=== PATIENT | female | born 1985 | race Caucasian/White ===

== ENCOUNTER 2018-03-28 13:04 | Emergency (ER) | payer MEDICAID ==
[2018-03-28] MEDS ORDERED: IPRATROPIUM/ALBUTEROL 3 ML NEB INH STA (13:12)
[2018-03-28] MEDS ORDERED: SODIUM CHLORIDE 0.9% 1,000 ML IV ONE (13:15)
[2018-03-28] MEDS ORDERED: DEXAMETHASONE 10 MG/ML VIAL IVP STA (13:15)
[2018-03-28] MEDS ORDERED: KETOROLAC 30 MG/ML VIAL IVP STA (13:15)
[2018-03-28] MEDS ORDERED: KETOROLAC 60 MG/2 ML VIAL IM STA (13:36)
[2018-03-28] MEDS ORDERED: DEXAMETHASONE 10 MG/ML VIAL PO STA (13:36)
[2018-03-28] MEDS ORDERED: ALBUTEROL NEB 2.5 MG/3 ML INH STA ×2 (13:44→15:08)
--- NOTE | 2018-03-28 13:50 | ED Physician Documentation ---
PD HPI DYSPNEA - Stated complaint Stated Complaint: DIFFICULTY BREATHING - Chief complaint Chief Complaint: Resp - History obtained from History obtained from: Patient - History of Present Illness Timing - onset: How many months ago (1) Timing - onset during: Rest Timing - duration: Months (1) Timing - details: Gradual onset Pain level max: 3 Pain level now: 3 Inciting event(s): URI Improved by: Rest Worsened by: Exertion Associated symptoms: Cough, Wheezing, Chest pain / discomfort (tightness). No: Fever, Hemoptysis Similar symptoms before: Diagnosis (asthma) - Additional information Additional information: used to use inhalers, has not for several years. Does smoke and use IV drugs. no fevers. 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 HEENT: Tonsil/Adenoidectomy - Present Medications Home Medications: Ambulatory Orders Medication Instructions Recorded Confirmed Albuterol Sulf [Ventolin Hfa 1 - 2 puffs INH Q4HR PRN #1 inhaler 03/28/18 Inhaler] predniSONE [Deltasone] 10 mg PO [id number] #42 tab 03/28/18 - Allergies Allergies/Adverse Reactions: Allergies Allergy/AdvReac Type Severity Reaction Status Date / Time latex Allergy Rash Verified 03/28/18 13:14 - Social History Does the pt smoke?: Yes Smoking Status: Current every day smoker Does the pt drink ETOH?: No Does the pt have substance abuse?: No - Immunizations Immunizations are current?: Yes PD ED PE NORMAL - Vitals Vital signs reviewed: Yes - General General: Alert and oriented X 3, No acute distress - HEENT HEENT: Moist mucous membranes - Neck Neck: Supple, no meningeal sign - Cardiac Cardiac: RRR - Respiratory Respiratory: Other (Mild respiratory distress, wheezing bilaterally. Diminished breath sounds at the bases) - Abdomen Abdomen: Soft, Non tender, Non distended - Derm Derm: Warm and dry - Extremities Extremities: No edema, No calf tenderness / cord - Neuro Neuro: Alert and oriented X 3 Results - Vitals Vitals: Oxygen O2 Source Room air Oxygen Flow Rate 3 - Rads (name of study) cxr Radiology: Prelim report reviewed, EMP read contemporaneously, See rad report (no acute disease) PD MEDICAL DECISION MAKING - ED course Complexity details: reviewed results, re-evaluated patient, considered differential, d/w patient ED course: 32 year old female with significant asthma exacerbation. Feels much better after steroids and nebulizer treatment. Will place on steroids and inhaler for home. No evidence of pneumonia. No hypoxia with ambulation in the ED she requests to go home at this time. Patient counseled regarding signs and symptoms for which I believe and urgent re-evaluation would be necessary. Patient with good understanding of and agreement to plan and is comfortable going home at this time This document was made in part using voice recognition software. While efforts are made to proofread this document, sound alike and grammatical errors may occur. Departure - Departure Disposition: 01 Home, Self Care Clinical Impression: Asthma exacerbation Qualifiers: Asthma severity: unspecified severity Asthma persistence: unspecified Qualified Code(s): J45.901 - Unspecified asthma with (acute) exacerbation Condition: Good Instructions: ED Reactive Airway Disease Follow-Up: your,doctor in 1 week [Other] Prescriptions: Albuterol Sulf [Ventolin Hfa Inhaler] 1 - 2 puffs INH Q4HR PRN #1 inhaler PRN Reason: Shortness Of Air/Wheezing predniSONE [Deltasone] 10 mg PO [id number] #42 tab Comments: This should improve with your inhaler and steroids. Return if you worsen Discharge Date/Time: 03/28/18 16:26
--- NOTE | 2018-03-28 14:28 | XRAY Report ---
Reason: dyspnea Procedure Date: 03/28/2018 Accession Number: [id number] / [id number] Procedure: XR - Chest 1 View X-Ray CPT Code: 77080 FULL RESULT: EXAM: CHEST RADIOGRAPHY EXAM DATE: 03/28/2018 02:10 PM. CLINICAL HISTORY: Shortness of breath. COMPARISON: [facility] W/PA CHEST LT 05/29/2015 2:49 PM. TECHNIQUE: 1 view. FINDINGS: Lungs/Pleura: No focal opacities evident. No pleural effusion. No pneumothorax. Mediastinum: Within exam limitations, the cardiomediastinal contour is normal. Other: None. IMPRESSION: No acute cardiopulmonary abnormality demonstrated. RADIA
[2018-03-28 16:22] VITALS: BP 117/77
== END 2018-03-28 16:26 | disposition home or self-care (01) ==
LOC: ED 13:04
DX: J45.901 Unspecified asthma with (acute) exacerbation (principal); F17.200 Nicotine dependence, unspecified, uncomplicated
CPT/HCPCS: 71045; 94640; 99283

== ENCOUNTER 2018-09-25 19:42 | Emergency (ER) | payer MEDICAID ==
[2018-09-25 19:57] VITALS: BP 130/71
[2018-09-25 20:03] LABS: BILIRUBIN,URINE NEGATIVE (NEGATIVE); GLUCOSE, URINE (UA) NEGATIVE (NEGATIVE); KETONES,URINE (UA) 15 mg/dL (NEGATIVE); LEUKOCYTE ESTERASE, URINE MODERATE (NEGATIVE); NITRITE,URINE NEGATIVE (NEGATIVE); OCCULT BLOOD,URINE LARGE (NEGATIVE); PH,URINE 8.5 PH (5.0-7.5); PROTEIN,URINE 30 mg/dL (NEGATIVE); UROBILINOGEN,URINE 0.2 (NORMAL) E.U./dL (NORMAL)
[2018-09-25 20:10] LABS: CLARITY,URINE CLOUDY (CLEAR)
[2018-09-25 20:11] LABS: HCG UR QUAL NEGATIVE
[2018-09-25 20:13] LABS: RBC,URINE TNTC /HPF (0-5)
[2018-09-25 20:14] LABS: BACTERIA,URINE Many /HPF (None Seen); SQUAMOUS EPITHELIAL CELL,UR RARE Squamous (<= Few)
[2018-09-25] MEDS ORDERED: LIDOCAINE 1% 2 ML VIAL MC ONE (20:33)
[2018-09-25] MEDS ORDERED: cefTRIAXone 1 GM VIAL IM STA (20:33)
[2018-09-25] MEDS ORDERED: KETOROLAC 60 MG/2 ML VIAL IM STA (20:33)
--- NOTE | 2018-09-25 20:35 | ED Physician Documentation ---
PD HPI FEMALE - Stated complaint Stated Complaint: FEM - Chief complaint Chief Complaint: UTI - History obtained from History obtained from: Patient, Friend - History of Present Illness Timing - onset: How many days ago (3) Timing - duration: Days (3) Timing - details: Gradual onset, Still present Associated symptoms: Fever, Back pain, Dysuria, Urinary frequency Contributing factors: No: Similar symptoms before: Diagnosis (pyelo) Recently seen: Not recently seen - Additional information Additional information: Previously well 33-year-old female has developed urinary urgency frequency and dysuria 3 days ago she is now progressed to having vomiting a subjective fever and flank pain. She has had Pyelo previously. She is vomited twice. Review of Systems Constitutional: reports: Fever, Myalgias, Fatigue Eyes: denies: Decreased vision Ears: denies: Ear pain Nose: denies: Rhinorrhea / runny nose, Congestion Throat: denies: Sore throat Cardiac: denies: Chest pain / pressure Respiratory: denies: Dyspnea, Cough GI: reports: Abdominal Pain, Nausea, Vomiting : reports: Dysuria, Frequency Skin: denies: Rash Musculoskeletal: reports: Back pain PD PAST MEDICAL HISTORY - Past Medical History Past Medical History: No Cardiovascular: None Respiratory: None Neuro: None Endocrine/Autoimmune: None GI: None FINANCIAL DIRECTOR: None : None HEENT: None Psych: None Musculoskeletal: None Derm: None - Past Surgical History Past Surgical History: Yes General: 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, Tubal ligation HEENT: Tonsil/Adenoidectomy - Present Medications Home Medications: Ambulatory Orders Medication Instructions Recorded Confirmed Albuterol Sulf [Ventolin Hfa 1 - 2 puffs INH Q4HR PRN #1 inhaler 03/28/18 Inhaler] predniSONE [Deltasone] 10 mg PO [id number] #42 tab 03/28/18 Ondansetron Odt [Zofran] 4 mg TL Q6H PRN #10 tablet 09/25/18 Oxycodone HCl/Acetaminophen 1 - 2 each PO Q6H PRN #14 tablet 09/25/18 [Percocet 5-325 mg Tablet] Sulfamethoxazole/Trimethoprim 1 each PO BID #14 tablet 09/25/18 [Sulfamethoxazole-Tmp Ds Tablet] - Allergies Allergies/Adverse Reactions: Allergies Allergy/AdvReac Type Severity Reaction Status Date / Time latex Allergy Rash Verified 09/25/18 19:57 - Social History Does the pt smoke?: Yes Smoking Status: Current every day smoker Does the pt drink ETOH?: No Does the pt have substance abuse?: No - Immunizations Immunizations are current?: Yes - POLST Patient has POLST: No PD ED PE NORMAL - Vitals Vital signs reviewed: Yes (tachy ) - General General: Alert and oriented X 3, Well developed/nourished, Other (appears to be in pain with 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 ) - HEENT HEENT: Atraumatic, PERRL - Neck Neck: Supple, no meningeal sign - Cardiac Cardiac: No murmur, Other (tachy ) - Respiratory Respiratory: No respiratory distress - Abdomen Abdomen: Soft, Non tender - Back Back: No spinal TTP, Other (CVA tenderness bilaterally worse on the right ) - Derm Derm: Normal color, Warm and dry, No rash - Extremities Extremities: No deformity, No edema, No calf tenderness / cord - Neuro Neuro: Alert and oriented X 3, shoe shiner 2-12 intact, No motor deficit, No sensory deficit, Normal speech Eye Opening: Spontaneous Motor: Obeys Commands Verbal: Oriented GCS Score: 15 - Psych Psych: Normal mood, Normal affect Results - Vitals Vitals: Vital Signs - 24 hr 09/25/18 19:54 Temperature 36.8 C Heart Rate 105 H Respiratory 16 Rate Blood Pressure 130/71 O2 Saturation 100 Oxygen O2 Source Room air - Labs Labs: Laboratory Tests 09/25/18 19:50 Urine Color YELLOW Urine Clarity CLOUDY Urine pH 8.5 H Ur Specific [place] 1.015 Urine Protein 30 H Urine Glucose (UA) NEGATIVE Urine Ketones 15 H Urine Occult Blood LARGE H Urine Nitrite NEGATIVE Urine Bilirubin NEGATIVE Urine Urobilinogen 0.2 (NORMAL) Ur Leukocyte Esterase MODERATE H Urine RBC TNTC H Urine WBC >25 H Ur Squamous Epith Cells RARE Squamous Urine Bacteria Many H Ur Microscopic Review INDICATED Urine Culture Comments INDICATED Urine HCG, Qual NEGATIVE PD MEDICAL DECISION MAKING - ED course Complexity details: reviewed results, re-evaluated patient, considered differential, d/w patient, d/w family ED course: 33-year-old female with urinary tract infections for 3 days has developed flank pain and fever vomiting she is not she appears to have pyelonephritis and she is administered Rocephin 1 g IM Toradol 60 mg IM and we will send her home with some pain medication and a prescription for some antibiotic and antinausea medicine. Departure - Departure Disposition: Home, Self Care Clinical Impression: Pyelonephritis Condition: Stable Instructions: ED Kidney Infec Female Follow-Up: [facility] [Provider Group] Prescriptions: Ondansetron Odt [Zofran] 4 mg TL Q6H PRN #10 tablet PRN Reason: Nausea / Vomiting Oxycodone HCl/Acetaminophen [Percocet 5-325 mg Tablet] 1 - 2 each PO Q6H PRN #14 tablet PRN Reason: pain Sulfamethoxazole/Trimethoprim [Sulfamethoxazole-Tmp Ds Tablet] 1 each PO BID #14 tablet Forms: Activity restrictions
== END 2018-09-25 20:55 | disposition home or self-care (01) ==
LOC: ED 19:42
DX: N12 Tubulo-interstitial nephritis, not specified as acute or chronic (principal); F17.200 Nicotine dependence, unspecified, uncomplicated
CPT/HCPCS: 81001; 81003; 81025; 87077; 87086; 87181; 96372; 99283

== ENCOUNTER 2018-10-23 19:14 | Emergency (ER) | payer MEDICAID ==
[2018-10-23 19:19] VITALS: BP 116/100
[2018-10-23] MEDS ORDERED: IPRATROPIUM/ALBUTEROL 3 ML NEB INH STA (19:27)
[2018-10-23] MEDS ORDERED: predniSONE 20 MG TABLET PO STA (19:27)
--- NOTE | 2018-10-23 19:29 | ED Physician Documentation ---
PD HPI URI - Stated complaint Stated Complaint: COUGH/SOA - Chief complaint Chief Complaint: Resp - History obtained from History obtained from: Patient - History of Present Illness Timing - onset: How many days ago (5) Timing duration: Days (5) Timing details: Gradual onset Pain level max: 0 Pain level now: 0 Associated symptoms: Dry cough, Dyspnea (wheezing, out of her inhaler). No: Fever, Chills, Ear pain, Nasal congestion, Rhinorrhea Contributing factors: COPD / asthma Improves by: Rest Worsened by: Activity, Breathing Recently seen: Not recently seen Review of Systems Constitutional: denies: Fever, Chills Throat: denies: Sore throat GI: denies: Vomiting, Diarrhea : denies: Now EGA Skin: denies: Rash Musculoskeletal: denies: Neck pain, Back pain PD PAST MEDICAL HISTORY - Past Medical History Cardiovascular: None Respiratory: Asthma Neuro: None Endocrine/Autoimmune: None GI: None PSYCHOLOGIST SOCIAL: None : None HEENT: None Psych: None Musculoskeletal: None Derm: None - Past Surgical History Past Surgical History: Yes General: 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, Tubal ligation HEENT: Tonsil/Adenoidectomy - Present Medications Home Medications: Ambulatory Orders Medication Instructions Recorded Confirmed Albuterol Sulf [Ventolin Hfa 1 - 2 puffs INH Q4HR PRN #1 inhaler 03/28/18 Inhaler] predniSONE [Deltasone] 10 mg PO [id number] #42 tab 03/28/18 Ondansetron Odt [Zofran] 4 mg TL Q6H PRN #10 tablet 09/25/18 Oxycodone HCl/Acetaminophen 1 - 2 each PO Q6H PRN #14 tablet 09/25/18 [Percocet 5-325 mg Tablet] Sulfamethoxazole/Trimethoprim 1 each PO BID #14 tablet 09/25/18 [Sulfamethoxazole-Tmp Ds Tablet] Albuterol Sulf [Ventolin Hfa 1 - 2 puffs INH Q4HR PRN #1 inhaler 10/23/18 Inhaler] predniSONE [Deltasone] 10 mg PO [id number] #42 tab 10/23/18 - Allergies Allergies/Adverse Reactions: Allergies Allergy/AdvReac Type Severity Reaction Status Date / Time latex Allergy Rash Verified 10/23/18 19:18 - Social History Does the pt smoke?: Yes Smoking Status: Current every day smoker Does the pt drink ETOH?: No Does the pt have substance abuse?: No - Immunizations Immunizations are current?: Yes - POLST Patient has POLST: No PD ED PE NORMAL - Vitals Vital signs reviewed: Yes - General General: Alert and oriented X 3, No acute distress, Well developed/nourished - HEENT HEENT: PERRL, Moist mucous membranes - Neck Neck: Supple, no meningeal sign - Cardiac Cardiac: RRR - Respiratory Respiratory: No respiratory distress, Other (Mild wheezing bilaterally. Diminished breath sounds bilaterally) - Abdomen Abdomen: Soft, Non tender, Non distended - Back Back: No spinal TTP - Derm Derm: Warm and dry - Extremities Extremities: No edema, No calf tenderness / cord - Neuro Neuro: Alert and oriented X 3 - Psych Psych: Normal mood, Normal affect Results - Vitals Vitals: Oxygen O2 Source Room air PD MEDICAL DECISION MAKING - ED course Complexity details: re-evaluated patient, considered differential, d/w patient ED course: 33-year-old female with an asthma exacerbation. No fevers. No clinical evidence of pneumonia. Feels better after steroids and breathing treatments. She is well-appearing, nontoxic. Patient counseled regarding signs and symptoms for which I believe and urgent re-evaluation would be necessary. Patient with good understanding of and agreement to plan and is comfortable going home at this time This document was made in part using voice recognition software. While efforts are made to proofread this document, sound alike and grammatical errors may occur. Departure - Departure Disposition: 01 Home, Self Care Clinical Impression: Asthma exacerbation Qualifiers: Asthma severity: unspecified severity Asthma persistence: unspecified Qualified Code(s): J45.901 - Unspecified asthma with (acute) exacerbation Condition: Good Instructions: ED Reactive Airway Disease Follow-Up: your,doctor in 1 week if not better [Other] Prescriptions: Albuterol Sulf [Ventolin Hfa Inhaler] 1 - 2 puffs INH Q4HR PRN #1 inhaler PRN Reason: Shortness Of Air/Wheezing predniSONE [Deltasone] 10 mg PO [id number] #42 tab Comments: Use the inhaler as needed at home. Return if you worsen. Use the steroids as prescribed. Discharge Date/Time: 10/23/18 20:41
[2018-10-23] MEDS ORDERED: ALBUTEROL NEB 2.5 MG/3 ML INH STA (19:52)
== END 2018-10-23 20:41 | disposition home or self-care (01) ==
LOC: ED 19:14
DX: J45.901 Unspecified asthma with (acute) exacerbation (principal); F17.200 Nicotine dependence, unspecified, uncomplicated
CPT/HCPCS: 94640; 99284; J7512

== ENCOUNTER 2019-01-01 23:07 | Emergency (ER) | payer MEDICAID ==
[2019-01-01 23:30] LABS: BILIRUBIN,URINE NEGATIVE (NEGATIVE); CLARITY,URINE CLEAR (CLEAR); GLUCOSE, URINE (UA) NEGATIVE (NEGATIVE); HCG UR QUAL NEGATIVE; KETONES,URINE (UA) NEGATIVE (NEGATIVE); LEUKOCYTE ESTERASE, URINE NEGATIVE (NEGATIVE); NITRITE,URINE NEGATIVE (NEGATIVE); OCCULT BLOOD,URINE NEGATIVE (NEGATIVE); PH,URINE 5.5 PH (5.0-7.5); PROTEIN,URINE TRACE mg/dL (NEGATIVE); UROBILINOGEN,URINE 0.2 (NORMAL) E.U./dL (NORMAL)
--- NOTE | 2019-01-02 00:27 | ED Physician Documentation ---
PD HPI ABD PAIN - Stated complaint Stated Complaint: ADB PX, R LOWER SIDE PX - Chief complaint Chief Complaint: Abd Pain - History obtained from History obtained from: Patient - History of Present Illness Timing - onset: Today (this afternoon.) Timing - duration: Hours Timing - details: Gradual onset (Had a gradual onset but over just an hour or 2 with pain in the periumbilical to right lower quadrant area which is steady and consistent. It is associated with nausea but no vomiting. She did not have any injury to the area. She has had ovarian cyst pain in the past but not the same character as this. She has not had any prior appendix problems. No prior kidney stones.), Still present Quality: Aching, Sharp, Pain Location: RLQ, Suprapubic Radiation: No: Lower back, Right flank Improved by: Laying still Worsened by: Moving, Palpation. No: Breathing Associated symptoms: Nausea. No: Fever, Vomiting, Diarrhea Similar symptoms before: Has not had sx before Recently seen: Not recently seen Review of Systems Constitutional: denies: Fever, Chills Nose: denies: Rhinorrhea / runny nose, Congestion Throat: denies: Sore throat Cardiac: denies: Chest pain / pressure Respiratory: denies: Cough GI: reports: Abdominal Pain, Nausea. denies: Vomiting, Constipation (states firm but regular stools recently.), Diarrhea : reports: LMP (few weeks ago). 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, Tubal ligation HEENT: Tonsil/Adenoidectomy - Present Medications Home Medications: Ambulatory Orders Medication Instructions Recorded Confirmed Naproxen 500 mg PO BID #20 tablet 01/02/19 Ondansetron Odt [Zofran] 4 mg TL Q6H PRN #10 tablet 01/02/19 Oxycodone HCl/Acetaminophen 1 each PO Q6H PRN #15 tablet 01/02/19 [Percocet 5-325 mg Tablet] Polyethylene Glycol 3350 [Miralax] 17 gm PO DAILY PRN #1 bottle 01/02/19 - Allergies Allergies/Adverse Reactions: Allergies Allergy/AdvReac Type Severity Reaction Status Date / Time latex Allergy Rash Verified 01/01/19 23:14 - Social History Does the pt smoke?: Yes Smoking Status: Current every day smoker Does the pt drink ETOH?: No Does the pt have substance abuse?: No - Immunizations Immunizations are current?: Yes - POLST Patient has POLST: No PD ED PE NORMAL - Vitals Vital signs reviewed: Yes - General General: Alert and oriented X 3, Well developed/nourished, Other (Appears very uncomfortable with pain in the right lower abdomen.) - HEENT HEENT: Pharynx benign - Neck Neck: Supple, no meningeal sign, No adenopathy - Cardiac Cardiac: RRR, No murmur - Respiratory Respiratory: Clear bilaterally - Abdomen Abdomen: Normal bowel sounds, Soft, Non distended, No organomegaly, Other (There is some tenderness in the right lower quadrant to right super pubic area with localized guarding and some percussion tenderness. There is no rebound noted. There is a small hernia felt in the umbilical area without any firmness or tenderness localized there. There is no CVA tenderness.) - Female Female : Deferred - Rectal Rectal: Deferred - Back Back: No CVA TTP - Derm Derm: Normal color, Warm and dry, No rash - Extremities Extremities: Normal ROM s pain, No edema, No calf tenderness / cord - Neuro Neuro: Alert and oriented X 3, No motor deficit, Normal speech Eye Opening: Spontaneous Motor: Obeys Commands Verbal: Oriented GCS Score: 15 Results - Vitals Vitals: Vital Signs - 24 hr 01/01/19 01/02/19 01/02/19 23:11 02:06 04:43 Temperature 36.5 C 36.8 C 36.6 C Heart Rate 112 H 97 79 Respiratory 18 20 18 Rate Blood Pressure 128/78 106/65 92/55 L O2 Saturation 100 95 96 01/02/19 06:21 Temperature Heart Rate 73 Respiratory 14 Rate Blood Pressure 99/58 L O2 Saturation 93 Oxygen O2 Source Room air - Labs Labs: Laboratory Tests 01/01/19 01/02/19 01/02/19 23:18 01:12 01:42 WBC 6.7 RBC 3.96 L Hgb 11.0 L Hct 34.2 L MCV 86.4 MCH 27.8 MCHC 32.2 RDW 14.7 Plt Count 204 MPV 9.4 Neut # (Auto) 3.3 Lymph # (Auto) 2.2 [place] # (Auto) 0.7 Eos # (Auto) 0.5 Baso # (Auto) 0.0 Absolute Nucleated RBC 0.00 Nucleated RBC % 0.0 Sodium 143 Potassium 3.7 Chloride 105 Carbon Dioxide 30 Anion Gap 8.0 BUN 12 Creatinine 0.5 Estimated GFR (MDRD) 142 Glucose 90 Calcium 8.8 Total Bilirubin 0.4 AST 29 ALT 68 H Alkaline Phosphatase 56 Total Protein 6.6 L Albumin 3.7 Globulin 2.9 Albumin/Globulin Ratio 1.3 Lipase 26 Urine Color YELLOW Urine Clarity CLEAR Urine pH 5.5 Ur Specific [place] >=1.030 H Urine Protein TRACE Urine Glucose (UA) NEGATIVE Urine Ketones NEGATIVE Urine Occult Blood NEGATIVE Urine Nitrite NEGATIVE Urine Bilirubin NEGATIVE Urine Urobilinogen 0.2 (NORMAL) Ur Leukocyte Esterase NEGATIVE Ur Microscopic Review NOT INDICATED Urine Culture Comments NOT INDICATED Urine HCG, Qual NEGATIVE - Rads (name of study) abd CT Radiology: Prelim report reviewed (Visualized appendix is normal. She is postcholecystectomy. No ureteral stones. There is a fat-containing hernia in the umbilical area without signs of incarceration.), See rad report pelvic U.S Radiology: Prelim report reviewed (Normal flow to both ovaries. No significant cysts. No free fluid.), See rad report PD MEDICAL DECISION MAKING - ED course Complexity details: reviewed results, re-evaluated patient (She is improved with IV pain medications but the pain returns intervals. She is given repeat medications. CT the scan was done and showed a normal appendix and no acute obvious surgical intervention. She is given Toradol as well. She did have improvement of her pain to a tolerable level though not resolution of the pain. CT and ultrasound were done could not find an acute obvious process. Comment was made on the CT scan of a significant amount of stool in the right hemicolon particularly the lower aspect. This may be causing some intestinal distention and localized pain in that area so I did give some MiraLAX as well. The patient will be discharged to home care.), considered differential (Consider kidney stone or ovarian cyst or appendicitis. Will get urine labs and CT scan.), d/w patient Departure - Departure Disposition: 01 Home, Self Care Clinical Impression: Lower abdominal pain of unknown etiology Condition: Stable Record reviewed to determine appropriate education?: Yes Instructions: ED Abdominal Pain Unkn Cause Prescriptions: Naproxen 500 mg PO BID #20 tablet Ondansetron Odt [Zofran] 4 mg TL Q6H PRN #10 tablet PRN Reason: Nausea / Vomiting Oxycodone HCl/Acetaminophen [Percocet 5-325 mg Tablet] 1 each PO Q6H PRN #15 tablet PRN Reason: pain Polyethylene Glycol 3350 [Miralax] 17 gm PO DAILY PRN #1 bottle PRN Reason: Constipation Comments: Not clear the exact cause of your pain. The radiology report says the appendix appears normal. They do comment on moderate amount of stool localized in the right lower ab:. Abdomen. This may be causing some stretching and pain of the intestine in that area in particular. For that aspect, take a dose of Miralax stool softener every 2-3 hours through the day today. Your pelvic ultrasound showed normal ovaries and blood flow to the area, no cysts nor signs of bleeding. The tests would not exclude some gynecologic conditions such as endometriosis or ovarian inflammation. These would be treated with anti-inflammatories. Stay well-hydrated through the day. Use ondansetron if needed for nausea. Use naproxen anti-inflammatory twice daily for the next several days to week. Add Tylenol or Percocet if needed for pain. Recheck if not improved well through the day today and into tomorrow. Return to the ER if worse pain despite medication, repetitive vomiting, fevers, bloody stool or any other new symptoms. Forms: Activity restrictions Discharge Date/Time: 01/02/19 07:01
[2019-01-02] MEDS ORDERED: HYDROmorphone 1 MG/ML CARPUJECT IM STA (00:45)
[2019-01-02] MEDS ORDERED: HYDROmorphone 1 MG/ML CARPUJECT IVP STA ×2 (01:18→02:42)
[2019-01-02] MEDS ORDERED: SODIUM CHLORIDE 0.9% 1,000 ML IV ONE (01:18)
[2019-01-02] MEDS ORDERED: ONDANSETRON 4 MG/2 ML VIAL IVP STA (01:18)
[2019-01-02] MEDS ORDERED: ACETAMINOPHEN 1,000 MG/100 ML 100 ML IV STA (01:19)
[2019-01-02 01:48] LABS: BASOPHILS % (AUTO) 0.6 %; EOSINOPHILS # (AUTO) 0.5 10^3/uL (0.0-0.7); EOSINOPHILS % (AUTO) 7.4 %; LYMPHOCYTES # (AUTO) 2.2 10^3/uL (1.5-3.5); LYMPHOCYTES % (AUTO) 32.2 %; MEAN CORPUSCULAR HEMOGLOBIN 27.8 pg (27.0-31.0); MEAN CORPUSCULAR HGB CONC 32.2 g/dL (32.0-36.0); MEAN CORPUSCULAR VOLUME 86.4 fL (81.0-99.0); MEAN PLATELET VOLUME 9.4 fL (7.9-10.8); MONOCYTES # (AUTO) 0.7 10^3/uL (0.0-1.0); MONOCYTES % (AUTO) 10.7 %; NEUTROPHILS # (AUTO) 3.3 10^3/uL (1.5-6.6); PLT - PLATELET COUNT 204 10^3/uL (130-450); RED BLOOD COUNT 3.96 10^6/uL (4.20-5.40); RED CELL DISTRIBUTION WIDTH 14.7 % (12.0-15.0); WHITE BLOOD COUNT 6.7 x10^3/uL (4.8-10.8)
[2019-01-02 02:01] LABS: ALBUMIN 3.7 g/dL (3.2-5.5); ALBUMIN/GLOBULIN RATIO 1.3 (1.0-2.2); BILIRUBIN,TOTAL 0.4 mg/dL (0.2-1.0); CALCIUM 8.8 mg/dL (8.5-10.3); CREATININE 0.5 mg/dL (0.4-1.0); TOTAL PROTEIN 6.6 g/dL (6.7-8.2)
[2019-01-02] MEDS ORDERED: IOVERSOL 320 100 ML VIAL IVP ONE ×2 (02:08→02:33)
[2019-01-02] MEDS ORDERED: KETOROLAC 15 MG/ML VIAL IVP STA (02:42)
--- NOTE | 2019-01-02 02:57 | CT Report ---
Reason: lower right abd pain progressive since AM Tuesday Procedure Date: 01/02/2019 Accession Number: [id number] / [id number] Procedure: CT - Abdomen/Pelvis W CPT Code: FULL RESULT: EXAM: CT ABDOMEN AND PELVIS EXAM DATE: 01/02/2019 02:31 AM. CLINICAL HISTORY: Lower right abdominal pain progressive since AM Tuesday. COMPARISONS: None. TECHNIQUE: Routine helical CT imaging was performed through the abdomen and pelvis. IV contrast: 100 ML OPTIRAY 320. Enteric contrast: No. Reconstructions: Coronal and sagittal. In accordance with CT protocol optimization, one or more of the following dose reduction techniques were utilized for this exam: automated exposure control, adjustment of mA and/or KV based on patient size, or use of iterative reconstructive technique. FINDINGS: Lung Bases: Unremarkable. Liver: No focal lesion identified. Mild periportal edema. Gallbladder/Bile Ducts: Status post cholecystectomy. Dilated common duct measuring 10 mm. Spleen: Normal. Pancreas: Normal. Adrenal Glands: Normal. Kidneys: Right renal cyst measuring 2.2 cm with some peripheral calcification. No masses or hydronephrosis. Peritoneal Cavity/Bowel: No bowel obstruction seen. No free air or free fluid. No diverticulitis. Large amount of stool in the right hemicolon. Normal-sized retroperitoneal lymph nodes. Appendix is partially seen and visualized portions appear normal. Small umbilical hernia containing fat. Pelvic Organs: Normal. The bladder and visualized pelvic organs are within normal limits. Vasculature: No aneurysms or other significant abnormality. Bones: No significant abnormality. Other: None. IMPRESSION: 1. Appendix is partially seen and visualized portions appear normal. 2. Large amount of stool in the right hemicolon. 3. Status post cholecystectomy with dilated common duct measuring 10 mm. 4. Small umbilical hernia containing fat. RADIA
[2019-01-02] MEDS ORDERED: DOCUSATE SODIUM 100 MG CAPSULE PO STA (03:01)
[2019-01-02] MEDS ORDERED: MORPHINE 10 MG/ML VIAL IVP STA ×2 (03:29→06:28)
--- NOTE | 2019-01-02 05:00 | Ultrasound Report ---
Reason: pelvic pain Procedure Date: 01/02/2019 Accession Number: [id number] / [id number] Procedure: US - Pelvic w/Transvag+Doppler Ltd CPT Code: FULL RESULT: EXAM: PELVIC ULTRASOUND WITH DOPPLERS CLINICAL HISTORY: Pelvic pain. Right lower quadrant pelvic pain for 1 day. Prior C-sections. COMPARISON: ABDOMEN/PELVIS W/ 01/02/2019 2:21 AM TECHNIQUE: Real-time transabdominal imaging performed to identify the uterus and adnexa and as an overview of other pelvic structures, followed by transvaginal imaging for better assessment of the endometrium and adnexa, with static image documentation. Color flow imaging and Doppler spectral analysis was performed to evaluate blood flow to the ovaries given pelvic pain and clinical concern for ovarian torsion. FINDINGS: Uterus: 7.0 x 5.1 x 4.1 cm, volume 77 cc. Anteverted position. Normal overall size and echotexture. Masses: scar seen within the lower uterine segment. Nonspecific heterogeneous myometrium. Endometrium: 8 mm. Normal. Cervix: Unremarkable. Right Ovary: 3.0 x 1.6 x 1.6 cm, volume 4.0 cc. Normal echotexture. Arterial and venous blood flow are present. PSV 9.8 cm/sec. RI 0.59. Adnexa are unremarkable. Left Ovary: 3.4 x 1.8 x 1.7 cm, volume 5.4 cc. There is a dominant 13 mm follicle. Normal echotexture. Arterial and venous blood flow are present. PSV 10.3 cm/sec. RI 0.50. Adnexa are unremarkable. Free Fluid: Small amount of free fluid within the cul-de-sac, within physiologic limits. Other: None. IMPRESSION: 1. No evidence of torsion. Physiologic appearance of the pelvic structures. 2. Arterial and venous blood flow are present to the ovaries bilaterally. RADIA
[2019-01-02 06:22] VITALS: BP 99/58
== END 2019-01-02 07:01 | disposition home or self-care (01) ==
LOC: ED 23:07
DX: R10.31 Right lower quadrant pain (principal); R10.33 Periumbilical pain; R11.0 Nausea; K42.9 Umbilical hernia without obstruction or gangrene; Z90.49 Acquired absence of other specified parts of digestive tract; F17.200 Nicotine dependence, unspecified, uncomplicated
CPT/HCPCS: 36415; 74177; 76830; 76856; 80053; 81003; 81025; 83690; 85025; 93976; 96361; 96365; 96372; 96375; 96376; 99284; 99285; A9270; J0131; J1170; Q9967; 81001; 87086

== ENCOUNTER 2022-10-13 22:20 | Emergency (ER) | payer MEDICAID ==
[2022-10-13] MEDS ORDERED: NITROFURANTOIN MACRO 100 MG CAPSULE PO STA (22:47)
--- NOTE | 2022-10-13 22:50 | ED Physician Documentation ---
History of Present Illness - Stated complaint Stated Complaint: MED REFILL - Chief complaint Chief Complaint: General - History obtained from History obtained from: Patient - Additonal information Additional information: 37yF with hx uti presents to ed with dysuria X 1 week and u/a showing infection in urine from OSH. patient [place] but did not fill it due to cost. she is requesting we provide rx for uti treatment. denies fevers, severe back pain. does have suprapubic pain and ache PD PAST MEDICAL HISTORY - Past Medical History Cardiovascular: None Respiratory: Asthma Neuro: None Endocrine/Autoimmune: None GI: None PARTY HOST: None : None HEENT: None Psych: None Musculoskeletal: None Derm: None - Past Surgical History Past Surgical History: Yes General: Cholecystectomy /PARTY HOST: section, Tubal ligation HEENT: Tonsil/Adenoidectomy - Present Medications Home Medications: Ambulatory Orders Medication Instructions Recorded Confirmed Nitrofurantoin [Macrobid] 100 mg PO BID #14 tab 10/13/22 - Allergies Allergies/Adverse Reactions: Allergies Allergy/AdvReac Type Severity Reaction Status Date / Time latex Allergy Rash Verified 10/13/22 22:36 - Social History Does the pt smoke?: Yes Smoking Status: Current every day smoker Does the pt drink ETOH?: No Does the pt have substance abuse?: No - Immunizations Immunizations are current?: Yes - POLST Patient has POLST: No PD ED PE NORMAL - Vitals Vital signs reviewed: Yes - General General: Alert and oriented X 3, No acute distress, Well developed/nourished - HEENT HEENT: Atraumatic, PERRL, EOMI - Abdomen Abdomen: Non tender, Non distended - Back Back: No CVA TTP Results - Vitals Vitals: Vital Signs - 24 hr 10/13/22 22:34 Temperature 36.9 C Heart Rate 91 Respiratory 18 Rate Blood Pressure 116/59 L O2 Saturation 96 Oxygen O2 Source Room air PD Medical Decision Making - ED course ED course: 37yF presents to ED with uti. antibiotics sent to pharmacy. return precautions given. f/u pcp Departure - Departure Disposition: 01 Home, Self Care Clinical Impression: Cystitis Condition: Stable Instructions: ED UTI Cystitis Female Prescriptions: Nitrofurantoin [Macrobid] 100 mg PO BID #14 tab Comments: You were seen in the emergency department for UTI. A prescription was sent electronically to [facility]. Return to the emergency department if you have other concerns. Follow-up with a primary care provider.
[2022-10-13 22:56] LABS: BILIRUBIN,URINE NEGATIVE (NEGATIVE); GLUCOSE, URINE (UA) 250 mg/dL (NEGATIVE); KETONES,URINE (UA) TRACE mg/dL (NEGATIVE); LEUKOCYTE ESTERASE, URINE SMALL (NEGATIVE); NITRITE,URINE POSITIVE (NEGATIVE); OCCULT BLOOD,URINE NEGATIVE (NEGATIVE); PH,URINE 6.5 PH (5.0-7.5); PROTEIN,URINE >=300 mg/dL (NEGATIVE)
[2022-10-13 22:57] LABS: HCG UR QUAL NEGATIVE
[2022-10-13 23:00] VITALS: BP 120/61
[2022-10-13 23:02] LABS: CLARITY,URINE HAZY (CLEAR)
[2022-10-13 23:03] LABS: BACTERIA,URINE Moderate /HPF (None Seen); RBC,URINE 0-5 /HPF (0-5); SQUAMOUS EPITHELIAL CELL,UR FEW Squamous (<= Few); WBC,URINE >25 /HPF (0-5)
== END 2022-10-13 23:04 | disposition home or self-care (01) ==
LOC: ED 22:20
DX: N30.90 Cystitis, unspecified without hematuria (principal); F17.200 Nicotine dependence, unspecified, uncomplicated; Z87.440 Personal history of urinary (tract) infections
CPT/HCPCS: 81001; 81025; 99283; A9270; 81003

== ENCOUNTER 2023-11-29 18:09 | Emergency (ER) | payer MEDICAID ==
[2023-11-29 18:30] VITALS: O2SAT 100
[2023-11-29 18:45] LABS: BILIRUBIN,URINE NEGATIVE (NEGATIVE); GLUCOSE, URINE (UA) NEGATIVE (NEGATIVE); KETONES,URINE (UA) NEGATIVE (NEGATIVE); LEUKOCYTE ESTERASE, URINE MODERATE (NEGATIVE); NITRITE,URINE NEGATIVE (NEGATIVE); OCCULT BLOOD,URINE MODERATE (NEGATIVE); PH,URINE 6.5 PH (5.0-7.5); PROTEIN,URINE 30 mg/dL (NEGATIVE); UROBILINOGEN,URINE 0.2 (NORMAL) E.U./dL (NORMAL)
[2023-11-29 18:46] LABS: CLARITY,URINE CLOUDY (CLEAR)
[2023-11-29 18:48] LABS: HCG UR QUAL NEGATIVE
[2023-11-29 19:00] LABS: BACTERIA,URINE Moderate /HPF (None Seen); SQUAMOUS EPITHELIAL CELL,UR FEW Squamous (<= Few); WBC,URINE >25 /HPF (0-5)
--- NOTE | 2023-11-29 20:47 | ED Physician Documentation ---
History of Present Illness - Stated complaint Stated Complaint: - Chief complaint Chief Complaint: UTI - Additonal information Additional information: 38 yo female with hx of UTI and pylelonephritis presents to the ER for four days of UTI symptoms and now experiencing right flank pain. Patient says that she is been experiencing generalized malaise no fevers no chills but feeling generally unwell. No new sexual partners and denies history of STDs. 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 : Chronic bladder infection HEENT: None Psych: None Musculoskeletal: None Derm: None - Past Surgical History Past Surgical History: Yes General: Cholecystectomy /LAMPS TESTER AND INSPECTOR: section, Tubal ligation HEENT: Tonsil/Adenoidectomy - Present Medications Home Medications: Ambulatory Orders Medication Instructions Recorded Confirmed Nitrofurantoin [Macrobid] 100 mg PO BID #14 tab 10/13/22 Albuterol Sulf [Ventolin Hfa 1 - 2 puffs INH Q4HR PRN #1 ea 11/29/23 Inhaler] Sulfamethox/Trimeth 800/160 1 tablet PO BID 10 Days #20 tablet 11/29/23 [Bactrim Ds] - Allergies Allergies/Adverse Reactions: Allergies Allergy/AdvReac Type Severity Reaction Status Date / Time latex Allergy Rash Verified 11/29/23 18:19 - Social History Does the pt smoke?: No Smoking Status: Former smoker Does the pt drink ETOH?: No Does the pt have substance abuse?: No - Immunizations Immunizations are current?: Yes - POLST Patient has POLST: No PD ED PE NORMAL - Vitals Vital signs reviewed: Yes - General General: Alert and oriented X 3, No acute distress, Well developed/nourished - Back Back: Other (right CVA tenderness) - Derm Derm: Normal color, Warm and dry, No rash - Psych Psych: Normal mood, Normal affect Results - Vitals Vitals: Vital Signs - 24 hr 11/29/23 11/29/23 18:19 21:31 Temperature 36.4 C L 36.5 C Heart Rate 78 72 Respiratory 16 16 Rate Blood Pressure 106/54 L 110/60 O2 Saturation 100 100 Oxygen O2 Source Room air - Labs Labs: Microbiology 11/29/23 18:37 Urine Culture - Preliminary Urine,Clean Catch Laboratory Tests 11/29/23 18:37 Urine Color YELLOW Urine Clarity CLOUDY Urine pH 6.5 Ur Specific [place] 1.020 Urine Protein 30 H Urine Glucose (UA) NEGATIVE Urine Ketones NEGATIVE Urine Occult Blood MODERATE H Urine Nitrite NEGATIVE Urine Bilirubin NEGATIVE Urine Urobilinogen 0.2 (NORMAL) Ur Leukocyte Esterase MODERATE H Urine RBC 6-10 H Urine WBC >25 H Ur Squamous Epith Cells FEW Squamous Urine Bacteria Moderate H Ur Microscopic Review INDICATED Urine Culture Comments INDICATED Urine HCG, Qual NEGATIVE PD Medical Decision Making - ED course ED course: 38-year-old female presents emergency department for UTI symptoms and right flank pain. Urinalysis reveals moderate amount of leukocytes with bacteria. She also has right CVA tenderness so should be treated for pyelonephritis. First dose of IM ceftriaxone given here in the emergency department and UA sent to lab for urine cultures. Prescription of Bactrim sent to patient's preferred pharmacy she also says that she has been struggling with some asthma issues lately and wanted refill on her albuterol inhaler so this is also been sent to her she is breathing without any difficulty airway patent and no wheezing heard from me. She safer discharge at this time she was informed that we will call her in a few days if she needs to change antibiotics and she is given strict ER return precautions. Departure - Departure Disposition: 01 Home, Self Care Clinical Impression: Pyelonephritis Instructions: Pyelonephritis Dc, ED Kidney Infec Female Prescriptions: Albuterol Sulf [Ventolin Hfa Inhaler] 1 - 2 puffs INH Q4HR PRN #1 ea PRN Reason: Wheezing Sulfamethox/Trimeth 800/160 [Bactrim Ds] 1 tablet PO BID 10 Days #20 tablet Comments: Thank you trusting us with your care you appear to have a right kidney infection also known as a pyelonephritis. I have sent a prescription of Bactrim to your preferred pharmacy please pick this up first thing tomorrow and you will take this twice a day for the next 10 days. If you have completed a total of 48 hours of antibiotics and you have no improvement of symptoms you need to come back to the emergency department. We will call you in 2 days if need to change antibiotics to keep your phone close to you. Discharge Date/Time: 11/29/23 21:30
[2023-11-29] MEDS: cefTRIAXone 1 GM VIAL IM STA (21:13)
[2023-11-29] MEDS: LIDOCAINE 1% 2 ML VIAL MC ONE (21:13)
[2023-11-29] MEDS: cefTRIAXone 1 GM in SODIUM CHLORIDE 0.9% MINIBAG 100 ML IV STA (21:16)
[2023-11-29 21:34] VITALS: BP 110/60
== END 2023-11-29 21:30 | disposition home or self-care (01) ==
LOC: ED 18:09
DX: N12 Tubulo-interstitial nephritis, not specified as acute or chronic (principal); Z76.0 Encounter for issue of repeat prescription; Z87.891 Personal history of nicotine dependence
CPT/HCPCS: 81001; 81003; 81025; 87077; 87086; 96372; 99283; 99284